=== PATIENT | male | born 1990 | race Caucasian/White ===

== ENCOUNTER 2017-11-17 22:29 | Emergency (ER) | payer MEDICAID, OTHER ==
[~2017-11-17] VITALS: Ht 177.8 cm; Wt 77.3 kg
[2017-11-17] MEDS ORDERED: normal saline 1000ML IV soln IVB ONE (22:50)
[2017-11-17 23:01] LABS: BASOPHILS % (AUTO) 0.3 % (0-1); EOSINOPHILS # (AUTO) 0.3 X10'3 (0-0.9); HEMATOCRIT 47.3 % (42.0-52.0); LYMPHOCYTES # (AUTO) 2.4 X10'3 (1.1-4.8); LYMPHOCYTES % (AUTO) 24.5 % (21-51); MEAN CORPUSCULAR HEMOGLOBIN 32.2 PG (27.0-31.0); MEAN CORPUSCULAR HGB CONC 33.8 % (33.0-36.5); MEAN CORPUSCULAR VOLUME 95.2 FL (78-98); MEAN PLATELET VOLUME 7.6 FL (7.4-10.4); MONOCYTES # (AUTO) 0.7 X10'3 (0-0.9); MONOCYTES % (AUTO) 6.9 % (2-12); NEUTROPHILS # (AUTO) 6.4 X10'3 (1.8-7.7); NEUTROPHILS % (AUTO) 65.3 % (42-75); PLATELET COUNT 242 X10'3 (140-440); RED BLOOD COUNT 4.96 X10'6 (4.70-6.10); RED CELL DISTRIBUTION WIDTH 14.1 % (11.5-14.5); WHITE BLOOD COUNT 9.9 X10'3 (4.5-11.0)
[2017-11-17 23:17] LABS: ALANINE AMINOTRANSFERASE 25 U/L (12-78); ALBUMIN 4.1 G/DL (3.4-5.0); ALBUMIN/GLOBULIN RATIO 1.3 (1.1-1.5); ALKALINE PHOSPHATASE 66 IU/L (46-116); ANION GAP 11 (8-16); ASPARTATE AMINO TRANSFERASE 21 U/L (10-37); BILIRUBIN,TOTAL 0.3 MG/DL (0.1-1.0); BLOOD UREA NITROGEN 9 MG/DL (7-18); CALCIUM 8.5 MG/DL (8.5-10.1); CHLORIDE 108 MMOL/L (99-107); ETHANOL 0.166 GM/DL (0.0-0.010); GLUCOSE 90 MG/DL (70-104); POTASSIUM 3.8 MMOL/L (3.5-5.1); SODIUM 145 MMOL/L (135-145); TOTAL CARBON DIOXIDE 26.4 MMOL/L (24-32); TOTAL PROTEIN 7.2 G/DL (6.4-8.2); eGFR 90 ML/MIN
[2017-11-17 23:31] LABS: ACETAMINOPHEN < 2.0 UG/ML (10-30)
[2017-11-17 23:32] LABS: OSMOLALITY 331 MOSM/K (280-300)
[2017-11-18 00:41] LABS: CLARITY,URINE CLEAR (Clear); COLOR,URINE STRAW (Yellow); GLUCOSE, URINE NEGATIVE (Neg); KETONES,URINE NEGATIVE (Neg); LEUKOCYTE ESTERASE ,URINE NEGATIVE (Neg); NITRITES, URINE NEGATIVE (Neg); OCCULT BLOOD,URINE NEGATIVE (Neg); PROTEIN,URINE NEGATIVE (Neg); UROBILINOGEN,URINE 0.2 E.U/dL (0.2-1.0)
[2017-11-18 00:43] LABS: UA COLLECTION TYPE CLN CATCH MIDSTREAM
[2017-11-18 00:52] LABS: URINE AMPHETAMINE SCREEN NEGATIVE (Neg); URINE BARBITUATE SCREEN NEGATIVE (Neg); URINE BENZODIAZEPINES SCREEN NEGATIVE (Neg); URINE CANNABINOID SCREEN POSITIVE (Neg); URINE COCAINE SCREEN NEGATIVE (Neg); URINE METHADONE SCREEN NEGATIVE (Neg); URINE OPIATE SCREEN NEGATIVE (Neg); URINE PHENCYCLIDINE SCREEN POSITIVE (Neg)
[2017-11-18 07:10] VITALS: BP 148/89
== END 2017-11-18 08:04 | disposition home or self-care (01) ==
LOC: ER 22:31
DX: T48.3X1A Poisoning by antitussives, accidental (unintentional), initial encounter (principal); I10 Essential (primary) hypertension; F12.10 Cannabis abuse, uncomplicated; Y92.89 Other specified places as the place of occurrence of the external cause
CPT/HCPCS: 36415; 80053; 80305; 80320; 80329; 81003; 83735; 83930; 85025; 93005; 96360; 99285; A4310; J7030; A4344

== ENCOUNTER 2018-08-23 02:02 | Emergency (ER) | payer MEDICAID ==
[~2018-08-23] VITALS: Ht 172.7 cm; Wt 81.0 kg
[2018-08-23] MEDS ORDERED: famotidine 10mg tablet PO SCH (02:25)
[2018-08-23] MEDS ORDERED: ketorolac trometh inj. 60 MG/2 ML VIAL IM ONE (02:25)
[2018-08-23] MEDS ORDERED: mag hydrox/Alum hydrox/simeth 30ml oral suspension PO ONE (02:25)
[2018-08-23] MEDS ORDERED: famotidine 20mg tablet PO STA (02:37)
[2018-08-23] MEDS ORDERED: famotidine 20mg tablet PO ONE ×2 (03:00)
[2018-08-23 03:20] VITALS: BP 115/70
== END 2018-08-23 03:24 | disposition home or self-care (01) ==
LOC: EDBD → ER 02:03 → MERGE 02:03 → ER 03:24
DX: R07.9 Chest pain, unspecified (principal); R06.02 Shortness of breath; F14.90 Cocaine use, unspecified, uncomplicated
CPT/HCPCS: 71045; 93005; 96372; 99284; J1885

== ENCOUNTER 2018-12-30 11:04 | Emergency (ER) | payer MEDICAID ==
[~2018-12-30] VITALS: Ht 172.7 cm; Wt 68.1 kg
--- NOTE | 2018-12-30 11:25 | NUR ---
Notified [facility] supercharge repair supervisor that pt will need to be evaluated by Dr Caldwell since we no longer do telepsych during these hours.
--- NOTE | 2018-12-30 12:25 | NUR ---
PT GIRLFRIEND IS AT BEDSIDE. PT IS CALM AND COOPERATIVE WITH STAFF.
[2018-12-30 12:43] LABS: BASOPHILS # (AUTO) 0.1 X10'3 (0-0.2); BASOPHILS % (AUTO) 0.6 % (0-1); EOSINOPHILS # (AUTO) 0.1 X10'3 (0-0.9); EOSINOPHILS % (AUTO) 1.3 % (0-6); HEMOGLOBIN 13.9 g/dl (14.0-17.9); LYMPHOCYTES # (AUTO) 1.9 X10'3 (1.1-4.8); LYMPHOCYTES % (AUTO) 20.6 % (21-51); MEAN CORPUSCULAR VOLUME 91.4 FL (78-98); MEAN PLATELET VOLUME 8.8 FL (7.4-10.4); MONOCYTES # (AUTO) 0.8 X10'3 (0-0.9); MONOCYTES % (AUTO) 8.1 % (2-12); NEUTROPHILS # (AUTO) 6.5 X10'3 (1.8-7.7); NEUTROPHILS % (AUTO) 69.4 % (42-75); PLATELET COUNT 245 X10'3 (140-440); RED BLOOD COUNT 4.49 X10'6 (4.70-6.10); RED CELL DISTRIBUTION WIDTH 12.8 % (11.5-14.5); WHITE BLOOD COUNT 9.4 X10'3 (4.5-11.0)
[2018-12-30 12:52] LABS: ALANINE AMINOTRANSFERASE 27 U/L (12-78); ALBUMIN/GLOBULIN RATIO 1.2 (1.1-1.5); ALKALINE PHOSPHATASE 66 IU/L (46-116); ANION GAP 10 (8-16); ASPARTATE AMINO TRANSFERASE 21 U/L (10-37); BILIRUBIN,TOTAL 0.4 MG/DL (0.1-1.0); BLOOD UREA NITROGEN 17 MG/DL (7-18); CALCIUM 9.4 MG/DL (8.5-10.1); CHLORIDE 101 MMOL/L (99-107); ETHANOL < 0.010 GM/DL (0.0-0.010); GLUCOSE 97 MG/DL (70-104); POTASSIUM 3.6 MMOL/L (3.5-5.1); SODIUM 139 MMOL/L (135-145); TOTAL CARBON DIOXIDE 27.9 MMOL/L (24-32); TOTAL PROTEIN 7.3 G/DL (6.4-8.2); eGFR 89 ML/MIN
[2018-12-30] MEDS ORDERED: NO HOME MEDS (13:11)
--- NOTE | 2018-12-30 14:51 | NUR ---
INITIATED TELE PSYCH WITH SOC. Dr Caldwell WILL NOT BE ABLE TO EVALUTE PT DUE TO HIGH PT LOAD.
--- NOTE | 2018-12-30 15:40 | NUR ---
Telepsych evaluating patient.
--- NOTE | 2018-12-30 17:31 | NUR ---
Patient sitting cross legged at the end of the bed. Patient refused juice. RN placed a water pitcher filled with iced water. Patient denies having any psychiatric diagnosis and states he doesn't know why he is here. RN asked patient when was the last time he ate. Patient stated he ate when he was in the main E.D. Continue to monitor.
--- NOTE | 2018-12-30 19:34 | NUR ---
Patient awaiting Telepsych. RN called for the results of the initial consult and they state they have no record of consult. RN initiated another consult and patient is standing next to Telepsych machine awaiting new consult.
--- NOTE | 2018-12-30 21:00 | NUR ---
RN spoke to Telepsych to see when patient would approx get his 2nd Telepsych eval. Tech advised RN that there are many people ahead of Mr. Jalloh. RN cancelled the Telepsych with plan to reschedule in the morning. RN called Dr Caldwell who was still in [facility]. He gave order for Zyprexa 10 mg with repeat if patient was unable to sleep. Continue to monitor.
[2018-12-30] MEDS ORDERED: OLANZapine 5mg rapidly disint. tablet PO SCH (21:05)
[2018-12-30] MEDS ORDERED: OLANZapine 5mg rapidly disint. tablet PO PRN (21:05)
[2018-12-30] MEDS ORDERED: olanzapine 10mg tablet PO SCH (21:08)
[2018-12-30] MEDS ORDERED: olanzapine 10mg tablet PO ONE (21:10)
[2018-12-30 21:31] LABS: URINE AMPHETAMINE SCREEN NEGATIVE (Neg); URINE BARBITUATE SCREEN NEGATIVE (Neg); URINE BENZODIAZEPINES SCREEN NEGATIVE (Neg); URINE CANNABINOID SCREEN NEGATIVE (Neg); URINE COCAINE SCREEN NEGATIVE (Neg); URINE METHADONE SCREEN NEGATIVE (Neg); URINE OPIATE SCREEN NEGATIVE (Neg); URINE PHENCYCLIDINE SCREEN NEGATIVE (Neg)
--- NOTE | 2018-12-30 21:34 | NUR ---
Patient laying in bed with his eyes open. Patient refused medication for sleep. RN advised patient that if he wasn't asleep by 2300 she would offer medication again. Continue to monitor.
--- NOTE | 2018-12-30 22:05 | NUR ---
Patient appears to be sleeping supine. Continue to monitor.
--- NOTE | 2018-12-30 23:35 | NUR ---
Patient ambulatory to BR, steady gait. Continue to monitor.
--- NOTE | 2018-12-30 23:50 | NUR ---
Another patient screaming and cussing which started around 2300 until 2335. Patient is now awake but refusing to take medication to help him sleep. Continue to monitor.
--- NOTE | 2018-12-31 00:26 | NUR ---
Patient sleeping on right side. No restlessness observed. Continue to monitor.
--- NOTE | 2018-12-31 02:51 | NUR ---
Patient continues to sleep on his right side. No restlessness observed. Continue to monitor.
--- NOTE | 2018-12-31 05:09 | NUR ---
Patient sleeping on right side. No restlessness observed. Continue to monitor.
--- NOTE | 2018-12-31 06:40 | NUR ---
Patient sleeping on right side, no signs of distress noted, respirations unlabored will continue to monitor.
--- NOTE | 2018-12-31 08:34 | NUR ---
Patient sitting up on side of bed, eating breakfast. spoke with patient and introduced self to patient, patient non-communicative but nodded head as response. flat affect, no distress noted -will continue to monitor.
--- NOTE | 2018-12-31 08:55 | NUR ---
Patient up and beginning to pace around unit, told patient doctor coming to evaluate him and asked to go back to room, pt now sitting on edge of bed looking around unit. will continue to monitor.
--- NOTE | 2018-12-31 09:55 | NUR ---
Patient on right side, sleeping, respirations even and unlabored. no distress.
--- NOTE | 2018-12-31 11:20 | NUR ---
Dr. Cardozo in evaluating this patient; patient calm. will continue to monitor.
[2018-12-31] MEDS ORDERED: LORazepam 1 MG tablet PO ONE (11:40)
[2018-12-31] MEDS ORDERED: aripiprazole 5mg tablet PO ONE (11:40)
--- NOTE | 2018-12-31 12:59 | NUR ---
[facility] called and requested information on pt:UA,UTOX,TSH.
[2018-12-31 14:14] LABS: CLARITY,URINE CLEAR (Clear); COLOR,URINE YELLOW (Yellow); GLUCOSE, URINE NEGATIVE (Neg); KETONES,URINE NEGATIVE (Neg); LEUKOCYTE ESTERASE ,URINE NEGATIVE (Neg); NITRITES, URINE NEGATIVE (Neg); OCCULT BLOOD,URINE NEGATIVE (Neg); PH,URINE 6.5 (4.8-8.0); PROTEIN,URINE NEGATIVE (Neg); UROBILINOGEN,URINE 0.2 E.U/dL (0.2-1.0)
--- NOTE | 2018-12-31 14:15 | NUR ---
Patient sleeping on right side, respirations even and unlabored, RR 14, will continue to monitor.
[2018-12-31 14:18] LABS: UA COLLECTION TYPE CLN CATCH MIDSTREAM
--- NOTE | 2018-12-31 14:54 | NUR ---
Spoke to CHRISTINAA Greenberg at [facility] regarding evaluation of this patient.
--- NOTE | 2018-12-31 15:37 | NUR ---
patient sleeping on right side, respirations unlabored, no distress will continue to monitor.
--- NOTE | 2018-12-31 16:31 | NUR ---
Patient sleeping on right side, respirations are unlabored, no distress at this time.
--- NOTE | 2018-12-31 16:37 | NUR ---
Spoke to [facility] worker regarding this patient-patient accepted at [facility]; to be picked up at [address] [facility]. Accepting provider to be Nurse Practioner Aida Gandara.
--- NOTE | 2018-12-31 17:11 | NUR ---
patient ambulating to bathroom and back, sitting up in bed with knees up, pt appears calm, no signs of distress.
[2018-12-31 17:18] VITALS: BP 121/84
--- NOTE | 2018-12-31 19:29 | NUR ---
[facility] ([place]; auto transport driver) picking up pt to transfer to facility. Nurse to nurse report called to Yari VILLEDA. Pt was dressed in his own clothing, all belonging transfered with pt; belongings sheet signed. Pt ambulated out of ER with Luanne and security sergeant.
== END 2018-12-31 19:38 ==
LOC: ER 11:09
DX: F32.9 Major depressive disorder, single episode, unspecified (principal); F20.9 Schizophrenia, unspecified; F12.90 Cannabis use, unspecified, uncomplicated
CPT/HCPCS: 36415; 80053; 80305; 80320; 81003; 84443; 85025; 99285; J3490

== ENCOUNTER 2019-10-20 13:50 | Emergency (ER) | payer MEDICAID ==
[~2019-10-20] VITALS: Ht 172.7 cm; Wt 86.4 kg
[~2019-10-20 13:50] MED LIST: NO HOME MEDS
[2019-10-20 14:24] VITALS: BP 147/76
[2019-10-20] MEDS ORDERED: HYDROcodone/acetaminophen 5mg/325mg tablet PO ONE (15:15)
[2019-10-20] MEDS ORDERED: ketorolac trometh inj. 60 MG/2 ML VIAL IM ONE (15:15)
[2019-10-20] MEDS ORDERED: cyclobenzaprine 10mg tablet PO ONE (15:15)
[2019-10-20] MEDS ORDERED: ACET-3067 PO (15:32)
[2019-10-20] MEDS ORDERED: IBUP-1984 PO (15:32)
[2019-10-20] MEDS ORDERED: CYCL-1 PO (15:32)
== END 2019-10-20 15:47 | disposition home or self-care (01) ==
LOC: ER 13:52
DX: M54.42 Lumbago with sciatica, left side (principal); F32.9 Major depressive disorder, single episode, unspecified; F20.9 Schizophrenia, unspecified; F12.90 Cannabis use, unspecified, uncomplicated; F10.99 Alcohol use, unspecified with unspecified alcohol-induced disorder; Y90.9 Presence of alcohol in blood, level not specified
CPT/HCPCS: 96372; 99283; J1885

== ENCOUNTER 2019-10-22 18:04 | Emergency (ER) | payer MEDICAID ==
[~2019-10-22] VITALS: Ht 172.7 cm; Wt 95.0 kg
[~2019-10-22 18:04] MED LIST changes: +ACET-3067 PO; +CYCL-1 PO; +IBUP-1984 PO
[2019-10-22] MEDS ORDERED: HYDR-4353 PO (18:58)
[2019-10-22 19:14] VITALS: BP 120/68
== END 2019-10-22 19:19 | disposition home or self-care (01) ==
LOC: ER 18:05
DX: M54.42 Lumbago with sciatica, left side (principal); G89.29 Other chronic pain; F32.9 Major depressive disorder, single episode, unspecified; F20.9 Schizophrenia, unspecified; F12.90 Cannabis use, unspecified, uncomplicated; F10.99 Alcohol use, unspecified with unspecified alcohol-induced disorder; Z79.899 Other long term (current) drug therapy; Y90.9 Presence of alcohol in blood, level not specified
CPT/HCPCS: 99283